=== PATIENT | male | born 1995 | race Caucasian/White ===

== ENCOUNTER 2024-01-13 23:54 | Emergency (ER) | payer OTHER, SELFPAY ==
[2024-01-14 00:02] VITALS: BP 103/75; PULSE 129; RESP 19; TEMP 37.2; O2SAT 97; BMI 20.2
[2024-01-14 00:44] LABS: Basophils Absolute Auto 0.1 X10*3/uL (0.0-0.2); Basophils Percent Auto 0.5 % (0-2); Eosinophils Percent Auto 0.1 % (0-4); Hematocrit 51.7 % (42.0-52.0); Hemoglobin 18.3 g/dl (14.0-18.0); Imm Gran Abs Auto 0.04 X10*3/uL (0.00-0.03); Imm Gran Pct Auto 0.4 % (0.0-0.4); Lymphocytes Absolute Auto 0.6 X10*3/uL (1.2-4.9); Lymphocytes Percent Auto 5.7 % (20-40); MANUAL DIFF FLAG NO; Mean Corpuscular HGB Conc 35.4 g/dl (31.0-36.0); Mean Corpuscular Hemoglobin 29.8 pg (27.0-33.0); Mean Corpuscular Volume 84.2 fL (80.0-98.0); Mean Platelet Volume 8.9 fL (9.4-12.4); Monocytes Absolute Auto 0.9 X10*3/uL (0.1-1.2); Neutrophils Absolute Auto 9.3 x10*3/uL (2.0-8.3); Neutrophils Percent Auto 85.3 % (45-73); Platelet Count 180 X10*3/uL (160-400); Red Blood Count 6.14 X10*6/uL (4.60-5.80); Red Cell Distribution Width 13.1 % (11.0-16.0); White Blood Count 10.8 X10*3/uL (4.8-10.8)
[2024-01-14 00:57] LABS: Alanine Aminotransferase 26 U/L (0-40); Albumin Level 4.8 g/dL (3.5-5.0); Alkaline Phosphatase 108 U/L (39-117); Anion Gap 15 (12-20); Aspartate Amino Transferase 20 U/L (5-37); Blood Urea Nitrogen 14 mg/dL (9-16); Carbon Dioxide 24 mmol/L (22-29); Chloride 101 mmol/L (96-108); Creatinine Clr Calc Pharmacy 86.2; Estimated Glomerular Filt Rate > 60; Glucose Random 87 mg/dL (60-115); Lipase 9 U/L (8-78); Potassium 3.4 mmol/L (3.3-5.1); Sodium 137 mmol/L (135-145); Total Protein 7.8 g/dL (6.5-8.0)
[2024-01-14 01:00] LABS: COVID-19 Test Negative (Negative); IDNOW Serial# 08D9AD1C; IDNOW Serial# 152EDE1D; Influenza A Negative (Negative); Influenza B2 Negative (Negative)
[2024-01-14 04:06] VITALS: BP 104/62; PULSE 100; RESP 16; TEMP 36.9; O2SAT 97
[2024-01-14 05:45] VITALS: BP 92/74; PULSE 88; RESP 16; TEMP 37.1; O2SAT 97
--- NOTE | 2024-01-14 06:39 | ED_ITS ---
HPI - Nausea/Vomiting/Diarrhea General Chief complaint: Nausea/Vomiting/Diarrhea Stated complaint: vomiting, body pain Time Seen by Provider: 01/14/24 06:31 Source: patient Mode of arrival: ambulatory Limitations: no limitations History of Present Illness ED Provider: Ranjit Hooks PA-C HPI Narrative: 28 yo male with history of Autism, bipolar depression with psychotic features, anxiety, history of ASD/ VSD/PDA s/p open heart surgery, history of MVP who presents to the ER for evaluation of nausea, vomiting and diffuse body aches that started yesterday afternoon. He states since arrival to the ER 7 hours ago he has vomited 6 more times. It is associated with upper abdominal pain, burning in nature. He states he has gotten sick like this before when he didn't have his medications: sertraline, seroquel, wellbutrin, lamictal. He last had his meds 2 days ago. He reports his body aches dissipated about 20 minutes ago. MD elicited complaint: nausea, vomiting, abdominal pain and other (body aches) Onset (ago): hour(s) Description of vomiting: food contents Associated nausea: Yes Associated abdominal pain: Yes Location of pain: epigastric Pain consistency: intermittent Severity: moderate Quality: other (burning) Exacerbating factors: none Relieving factors: none Context: other (ran out of [facility] meds (from [place] and didn't bring enough, dad just got refills for him yesterday)) Associated symptoms: loss of appetite, nausea/vomiting, anxiety and fatigue Related Data Previous Rx's ?Medication ?Instructions ?Recorded ondansetron 4 mg disintegrating 4 mg PO Q8H PRN nausea and 01/14/24 tablet vomiting #7 tabs Allergies Allergy/AdvReac Type Severity Reaction Status Date / Time No Known Allergies Allergy Verified 01/14/24 00:03 Review of Systems 2 Review of Systems: Yes all other systems are reviewed and are negative Gastrointestinal: Gastrointestinal: Reports nausea PMFSH Social History Social History Advance Directives: No Advance Directives Information Provided: No Do you have a plan to hurt others: No Plan Physical Exam 2 Vital Signs: Vital Signs: Last Vital Signs Temp 98.7 F 01/14/24 05:45 Pulse 88 01/14/24 05:45 Resp 16 01/14/24 05:45 BP 92/74 01/14/24 05:45 Pulse Ox 97 06/13/24 05:45 O2 Del Method Room Air 01/14/24 05:45 BMI result Body Mass Index 20.2 Appearance: Alert. Oriented X3. Appears ill Head: normocephalic, atraumatic. Eyes: Pupils equal, round and reactive to light. ENT: Pharynx normal. No tonsillar swelling or exudate. Neck: Normal inspection. Neck supple. CVS: Normal heart rate and rhythm. Pulses normal. Respiratory: No respiratory distress. Breath sounds normal. Abdomen: Soft with epigastric tenderness, hyperactive +BS x4 Skin: Skin warm and dry. Normal skin color. Normal skin turgor. No rashes. Extremities: No lower extremity edema. No joint swelling. Neuro/psych: Oriented X 3. No motor deficit. No sensory deficit. CN II-XII intact. Normal speech and cognition. Medications Administered Discontinued Medications Generic Name Dose Route Start Last Admin Trade Name Freq PRN Reason Stop Dose Admin Sodium Chloride 1,000 mls @ 999 mls/hr 01/14/24 07:00 01/14/24 09:51 Ns IV 01/14/24 08:00 Infused .Q1H1M KRISHNA Infusion Ketorolac Tromethamine 15 mg 01/14/24 06:54 01/14/24 08:37 Ketorolac Tromethamine 15 Mg/Ml Vial IVPUSH 01/14/24 06:55 15 mg ONCE ONE Administration Ondansetron HCl 4 mg 01/14/24 06:07 01/14/24 08:40 Ondansetron Odt 4 Mg Tab.Rapdis TRANSLINGU 01/14/24 06:08 Not Given ONCE ONE Ondansetron HCl 4 mg 01/14/24 06:54 01/14/24 08:37 Ondansetron Hcl 4 Mg/2 Ml Vial IVPUSH 01/14/24 06:55 4 mg ONCE ONE Administration Medical Decision Making Medical Decision Making MDM Narrative: 28 yo male with history of autism, bipolar disorder, anxiety, depression who presents to the ER for evaluation of nausea and vomiting along with epigastric or abdominal pain. This is in the setting of missed 2 days of psychiatric medications. Reports history of similar presentation in the past. Patient initially tachycardic on arrival after having just vomited. Patient unfortunately waited several hours in the waiting room and in the emergency departmart you before they are able to be seen. At this time the patient reports 6 additional vomiting episodes. Lab workup showed some mild hemoconcentration, electrolytes were within normal limits without any evidence of dehydration. His vital signs had improved without any treatment. An IV was established she was given IV fluids, Zofran and Toradol with significant improvement in his symptoms. He is able to tolerate p.o. and reported 0 abdominal discomfort at this time. He would like to go home. He has prescriptions for his psych medications. Father will bring him home. P.r.n. Zofran sent to the pharmacy locally. Stable for discharge. Differential Diagnosis Differential Diagnoses: The differential diagnosis associated with the presentation includes withdrawal sxs from psych medications, viral gastroenteritis, pancreatitis, cholecystitis, dehydration Admission/Observation Consideration of admission/observation: Escalation of care including admission/observation considered Lab Data MDM Lab Attestation statement: I reviewed the patient's lab results. 01/14/24 00:34 01/14/24 00:34 Labs: Lab Results 01/14/24 Range/Units 00:34 WBC 10.8 (4.8-10.8) X10*3/uL RBC 6.14 H (4.60-5.80) X10*6/uL Hgb 18.3 H (14.0-18.0) g/dl Hct 51.7 (42.0-52.0) % MCV 84.2 (80.0-98.0) fL MCH 29.8 (27.0-33.0) pg MCHC 35.4 (31.0-36.0) g/dl RDW 13.1 (11.0-16.0) % Plt Count 180 (160-400) X10*3/uL MPV 8.9 L (9.4-12.4) fL Immature Gran % (Auto) 0.4 (0.0-0.4) % Neut % (Auto) 85.3 H (45-73) % Lymph % (Auto) 5.7 L (20-40) % Gage % (Auto) 8.0 (2-11) % Eos % (Auto) 0.1 (0-4) % Baso % (Auto) 0.5 (0-2) % Lymph # (Auto) 0.6 L (1.2-4.9) X10*3/uL Gage # (Auto) 0.9 (0.1-1.2) X10*3/uL Eos # (Auto) 0.0 (0.0-0.4) X10*3/uL Baso # (Auto) 0.1 (0.0-0.2) X10*3/uL Abs Immat Gran (auto) 0.04 H (0.00-0.03) X10*3/uL Absolute Neuts (auto) 9.3 H (2.0-8.3) x10*3/uL Absolute Nucleated RBC 0.000 (0.0-0.012) X10*3/uL Nucleated RBC % (auto) 0.0 (0.0-0.2) /100WBC Sodium 137 (135-145) mmol/L Potassium 3.4 (3.3-5.1) mmol/L Chloride 101 (96-108) mmol/L Carbon Dioxide 24 (22-29) mmol/L Anion Gap 15 (12-20) BUN 14 (9-16) mg/dL Creatinine 0.97 (0.5-1.4) mg/dL Estim Creat Clear Calc 86.2 Estimated GFR > 60 Random Glucose 87 (60-115) mg/dL Calcium 10.0 (8.4-10.2) mg/dL Total Bilirubin 1.0 (0.0-1.0) mg/dL AST 20 (5-37) U/L ALT 26 (0-40) U/L Alkaline Phosphatase 108 (39-117) U/L Total Protein 7.8 (6.5-8.0) g/dL Albumin 4.8 (3.5-5.0) g/dL Lipase 9 (8-78) U/L COVID-19 (CANDICE) Negative (Negative) COVID-19 Clin Com See Note Influenza Type A (GAETANO) Negative (Negative) Influenza Type B (GAETANO) Negative (Negative) Influenza A & B Note See Note Independent Historian Clinical information obtained from an independent historian. History obtained from or confirmed by: Parent Tests considered The following testing was considered but not selected: Considered CT scan of the abdomen given his tenderness however improved significantly with IV meds, IV hydration, re-evaluation showed nontender abdomen Prescription Management I considered prescription management with: Pain Medication and Other (Antiemetic) Chronic Conditions Patient?s care impacted by: Other (Autism, bipolar, anxiety) Critical Care Time Critical Care Time Critical Care Time: No Discharge Plan Discharge Clinical Impression: Nausea & vomiting Qualifiers: Vomiting type: unspecified Qualified Code(s): R11.2 - Nausea with vomiting, unspecified Patient Disposition: Home, Self-Care Instructions: Acute Nausea and Vomiting (ED) Additional Instructions: Your lab workup today was unremarkable. Your electrolytes were in normal limits, no evidence of dehydration. You tested negative for COVID and influenza. Recommend restarting all of your psychiatric medications at your normal prescribed dose. If you develop nausea, take the prescribed medication as directed. Rest and drink plenty of fluids today. Follow-up with your doctor. If you develop new or worsening symptoms call 911 or come back to the ER for further evaluation. Prescriptions: New ondansetron 4 mg tablet,disintegrating 4 mg PO Q8H PRN (Reason: nausea and vomiting) Qty: 7 0RF Print Language: Belarusian
[2024-01-14] MEDS: ondansetron HCL 4 MG/2 ML VIAL IVPUSH (08:37)
[2024-01-14] MEDS: Ketorolac Tromethamine 15 MG/ML VIAL IVPUSH (08:37)
[2024-01-14] MEDS: 0.9 % Sodium Chloride 1,000 ML 999 ML IV (08:37)
--- NOTE | 2024-01-14 09:50 | PC.NURSE ---
PO CHALLENGE PROVIDED
[2024-01-14 10:44] VITALS: BP 92/56; PULSE 94; RESP 16; TEMP 36.4; O2SAT 95
[2024-01-14 11:03] VITALS: BP 92/56; PULSE 94; RESP 16; TEMP 36.4; O2SAT 95
== END 2024-01-14 11:06 | disposition home or self-care (01) ==
PROVIDERS: Emergency Medicine; Emergency Provider Emergency Medicine
DX: R11.2 Nausea with vomiting, unspecified (principal); F31.9 Bipolar disorder, unspecified; F41.9 Anxiety disorder, unspecified; Z79.899 Other long term (current) drug therapy; Z11.52 Encounter for screening for COVID-19
CPT/HCPCS: 80053; 83690; 85025; 87502; 87635; 96361; 96374; 96375; 99284; J1885; J2405